=== PATIENT | female | born 1985 | race Caucasian/White ===

== ENCOUNTER 2019-07-13 18:18 | Emergency (ER) | payer MEDICAID ==
[~2019-07-13] VITALS: Ht 162.6 cm; Wt 81.6 kg
[2019-07-13 18:29] VITALS: BP_SYST 147
--- NOTE | 2019-07-13 19:12 | NUR ---
Patient to ER bed 6 to gown for evaluation. Side rails up. Report given to Annette PEÑA.
--- NOTE | 2019-07-13 19:15 | NUR ---
Patient AOx4, ambulatory, presents to ER with complaint of bilateral ear pressure and ringing x1 day. Patient also states she has been experiencing chest congestion for the past 2 days. Patient also reports a low grade temp of 100.0. No other symptoms or complaints.
--- NOTE | 2019-07-13 19:16 | NUR ---
GLENDY WALKER at bedside examining patient.
[2019-07-13 19:32] VITALS: BP_SYST 147
--- NOTE | 2019-07-13 19:32 | NUR ---
Patient given written and verbal discharge instructions and verbalizes understanding. ER MD discussed with patient the results and treatment provided. Patient in stable condition. ID arm band removed. Rx of Prednisone, Fluticasone, and Promehthazine given. Patient educated on pain management and to follow up with PMD. Pain Scale 2/10. Opportunity for questions provided and answered. Medication side effect fact sheet provided.
== END 2019-07-13 19:32 | disposition home or self-care (01) ==
LOC: SED 18:18
DX: J06.9 Acute upper respiratory infection, unspecified (principal); R03.0 Elevated blood-pressure reading, without diagnosis of hypertension; J45.909 Unspecified asthma, uncomplicated
CPT/HCPCS: 99283

== ENCOUNTER 2021-10-26 11:58 | Emergency (ER) | payer MEDICAID ==
[~2021-10-26] VITALS: Ht 157.5 cm; Wt 63.0 kg
[2021-10-26 12:26] VITALS: BP_SYST 144
--- NOTE | 2021-10-26 13:00 | NUR ---
AMBULATED TO BED 8
--- NOTE | 2021-10-26 13:05 | NUR ---
DR. GRAHAM AT BEDSIDE
--- NOTE | 2021-10-26 13:10 | NUR ---
PT CAME IN FROM HOME C/O LEFT SHOULDER AND UPPER BACK PAIN X 3 DAYS. STATES PAIN STARTED AFTER LIFTING AND CARRYING HEAVY STUFF AT WORK. PT WOULD LIKE TO BE EXAMINED BY DOCTOR. PT IS AMBULATORY, AAOX4, V/S STABLE
[2021-10-26] MEDS ORDERED: NAPR-690 PO (13:38)
[2021-10-26 13:50] VITALS: BP_SYST 144
--- NOTE | 2021-10-26 13:50 | NUR ---
Patient given written and verbal discharge instructions and verbalizes understanding. ER MD discussed with patient the results and treatment provided. Patient in stable condition. ID arm band removed. NO Rx given. Patient educated on pain management and to follow up with PMD. Pain Scale 0/10. Opportunity for questions provided and answered. Medication side effect fact sheet provided.
== END 2021-10-26 13:50 | disposition home or self-care (01) ==
LOC: SED 11:58
DX: S43.401A Unspecified sprain of right shoulder joint, initial encounter (principal); Z88.8 Allergy status to other drugs, medicaments and biological substances; Z79.899 Other long term (current) drug therapy; X50.1XXA Overexertion from prolonged static or awkward postures, initial encounter; Y93.89 Activity, other specified; Y92.89 Other specified places as the place of occurrence of the external cause; Y99.8 Other external cause status
CPT/HCPCS: 73030; 99283